=== PATIENT | male | born 1945 | race Caucasian/White ===

== ENCOUNTER 2020-07-10 18:31 | Inpatient (IN) | payer MEDICARE ==
[2020-07-10 19:04] LABS: ABSOLUTE EOSINOPHILS # (AUTO) 0.1 10^3/uL (0.0-0.6); ABSOLUTE LYMPHOCYTES (AUTO) 1.8 10^3/uL (0.5-4.7); ABSOLUTE MONOCYTES (AUTO) 0.7 10^3/uL (0.1-1.4); ABSOLUTE NEUT (AUTO) 4.7 10^3/uL (1.7-8.2); BASOPHILS % (AUTO) 0.3 % (0-2); EOSINOPHILS % (AUTO) 1.6 % (0-6); HEMATOCRIT 40.2 % (37.9-51.0); LYMPHOCYTES % (AUTO) 24.4 % (13-45); MEAN CORPUSCULAR HEMOGLOBIN 31.6 pg (27.0-33.4); MEAN CORPUSCULAR HGB CONC 34.9 g/dL (32.0-36.0); MEAN CORPUSCULAR VOLUME 91 fl (80-97); PLATELET COUNT 174 10^3/uL (150-450); RED BLOOD COUNT 4.44 10^6/uL (4.35-5.55); RED CELL DISTRIBUTION WIDTH 11.7 % (11.5-14.0); SEGMENTED NEUTROPHILS % (AUTO) 64.7 % (42-78); TOTAL CELLS COUNTED % (AUTO) 100 %; WHITE BLOOD COUNT 7.3 10^3/uL (4.0-10.5)
[2020-07-10 19:13] LABS: INTERNATIONAL RATION (INR) 0.94; PROTHROMBIN TIME 12.8 SEC (11.4-15.4)
[2020-07-10 19:18] LABS: ALBUMIN 4.3 g/dL (3.5-5.0); ALKALINE PHOSPHATASE 77 U/L (38-126); ANION GAP 10 (5-19); ASPARTATE AMINO TRANSFERASE 27 U/L (17-59); BILIRUBIN,DIRECT 0.2 mg/dL (0.0-0.4); BILIRUBIN,TOTAL 0.7 mg/dL (0.2-1.3); BLOOD UREA NITROGEN 23 mg/dL (7-20); CALCIUM 9.8 mg/dL (8.4-10.2); CARBON DIOXIDE 25 mmol/L (22-30); CHLORIDE 102 mmol/L (98-107); GLUCOSE 309 mg/dL (75-110); POTASSIUM 4.5 mmol/L (3.6-5.0); TOTAL PROTEIN 7.2 g/dL (6.3-8.2)
--- NOTE | 2020-07-10 19:18 | ER Document Report ---
ED General - General Chief Complaint: Weakness Stated Complaint: WEAKNESS Time Seen by Provider: 07/10/20 18:56 Primary Care Provider: COLLEEN BLACK PA [Primary Care Provider] - Follow up as needed - HPI Notes: Patient is a 75-year-old male with a history of rheumatoid arthritis, gout, diabetes, hypertension, who presents to the emergency department for evaluation of right-sided weakness. He states about 2 weeks ago he went to stand up and he collapsed to the floor. He fell to both of his knees, sustaining abrasions. He had weakness for about a day. He states that starting again on Saturday he noticed right-sided weakness. He really cannot make his right arm do what he wants it to. He denies any associated pain. No difficulty seeing, speaking, swallowing. Moving his left side without difficulty. He denies any recent head injury. He states that his blood sugar is well controlled when he takes his medications as prescribed, but he admits he does not take his medications at times. He cannot give me a clear reason why. - Related Data Allergies/Adverse Reactions: No Known Allergies Allergy (Unverified 07/10/20 19:04) Home Medications: List reviewed at bedside Past Medical History - General Information source: Patient, Relative - Social History Smoking Status: Former Smoker Family History: Reviewed & Not Pertinent Patient has homicidal ideation: No - Past Medical History Cardiac Medical History: Reports: Hx Hypercholesterolemia, Hx Hypertension Endocrine Medical History: Reports: Hx Diabetes Mellitus Type 2 Renal/ Medical History: Reports: Hx Benign Prostatic Hyperplasia Musculoskeletal Medical History: Reports Hx Arthritis - Rheumatoid arthritis, Reports Hx Gout Review of Systems - Review of Systems Constitutional: No symptoms reported EENT: No symptoms reported Cardiovascular: No symptoms reported, See HPI Respiratory: No symptoms reported Gastrointestinal: No symptoms reported Genitourinary: No symptoms reported Musculoskeletal: No symptoms reported Skin: See HPI Neurological/Psychological: See HPI -: Yes All other systems reviewed and negative Physical Exam - Vital signs Vitals: Temp Pulse Resp BP Pulse Ox 98.5 F 88 16 181/87 H 95 07/10/20 18:59 07/10/20 18:59 07/10/20 18:59 07/10/20 18:59 07/10/20 18:59 - Notes Notes: Vital signs reviewed, please refer to chart. Head is normocephalic, atraumatic. Pupils equal round, reactive to light. Neck is supple without meningismus. Heart is regular rate and rhythm. Lungs are clear to auscultation bilaterally. Abdomen is soft, nontender, normoactive bowel sounds throughout. Extremities without cyanosis, clubbing. Posterior calves are nontender. Peripheral pulses are equal. Skin is warm and dry. Well-healing abrasions noted to bilateral knees. Patient is awake, alert, oriented x3. Cranial nerves II - XII are grossly intact without focal neurological deficits. Strength is plus 5 out of 5 left upper and lower extremities. Right upper and lower extremities exhibit 3 out of 5 strength. He does have pronator drift on the right. Sensation is intact. Reflexes diminished bilaterally. Intact vxhfyr-rjwu-leshks, rapid alternating movements, ntsz-ad-gens. Course - Re-evaluation Re-evalutation: 07/10/20 19:17 Patient presents the emergency department for evaluation. He was initially seen, had laboratory investigations ordered. This patient has most definitely suffered a CVA of some sort. His deficits are minimal as of this moment. CT scan, blood work pending at this time. We will continue to monitor. 07/10/20 21:05 Laboratory investigations and imaging are largely unremarkable. No hemorrhage noted on CT scan. Patient is given aspirin, he was able to pass swallow screen. His blood pressure has improved without any sort of intervention, he is currently 146/72. I spoke with Dr. Yancey, he will admit the patient for further care. - Vital Signs Vital signs: Temp Pulse Resp BP Pulse Ox 98.5 F 88 13 181/87 H 97 07/10/20 18:59 07/10/20 19:00 07/10/20 20:25 07/10/20 19:00 07/10/20 20:31 - Laboratory Result Diagrams: 07/10/20 18:46 07/10/20 18:46 Laboratory results interpreted by me: 07/10/20 18:46 BUN 23 H Glucose 309 H - Diagnostic Test Radiology reviewed: Reports reviewed Radiology results interpreted by me: 07/10/20 21:05 Chest X-Ray 07/10/20 19:13 IMPRESSION: Hyperinflated lungs. No acute cardiopulmonary disease. Head CT 07/10/20 19:13 IMPRESSION: 1. Generalized atrophy and chronic small vessel ischemic changes. Follow-up head CT or MRI might be considered to exclude superimposed acute or subacute ischemia. No evidence of acute intracranial hemorrhage or major vascular territorial infarct. 2. Mild paranasal sinus mucosal thickening without air-fluid level. TECHNICAL DOCUMENTATION: Quality ID # 436: Final reports with documentation of one or more dose reduction techniques (e.g., Automated exposure control, adjustment of the mA and/or kV according to patient size, use of iterative reconstruction technique) copyright 2011 [employer]- All Rights Reserved - EKG Interpretation by Me Additional EKG results interpreted by me: 07/10/20 21:05 Sinus mechanism with rate of 85 bpm. Left axis deviation. Right bundle branch block. No old studies available for comparison. Discharge - Discharge Clinical Impression: Acute CVA (cerebrovascular accident) Condition: Stable Disposition: ADMITTED OBSERVATION Admitting Provider: Naye (Hospitalist) Unit Admitted: [facility]U Referrals: COLLEEN BLACK PA [Primary Care Provider] - Follow up as needed
--- NOTE | 2020-07-10 20:01 | RADIOLOGY REPORT (SQ) ---
EXAM DESCRIPTION: CHEST SINGLE VIEW IMAGES COMPLETED DATE/TIME: 07/10/2020 6:46 pm REASON FOR STUDY: right sided weakness COMPARISON: None. EXAM PARAMETERS: NUMBER OF VIEWS: One view. TECHNIQUE: Single frontal radiographic view of the chest acquired. RADIATION DOSE: NA LIMITATIONS: None. FINDINGS: LUNGS AND PLEURA: Lungs are hyperinflated. No opacities, masses or pneumothorax. No pleu ral effusion. MEDIASTINUM AND HILAR STRUCTURES: No masses. Contour normal. HEART AND VASCULAR STRUCTURES: Heart normal in size. Normal vasculature. BONES: No acute findings. HARDWARE: None in the chest. OTHER: No other significant finding. IMPRESSION: Hyperinflated lungs. No acute cardiopulmonary disease. TECHNICAL DOCUMENTATION: JOB ID: [id number] 2010 [employer]- All Rights Reserved Reading location - IP/workstation name: [email or web address]
--- NOTE | 2020-07-10 20:25 | RADIOLOGY REPORT (SQ) ---
EXAM DESCRIPTION: CT HEAD WITHOUT IV CONTRAST COMPLETED DATE/TME: 07/10/2020 19:51 CLINICAL HISTORY: 75 years, Male, right sided weakness COMPARISON: None. TECHNIQUE: Noncontrast imaging of the brain was performed. Images stored on PACS. All CT scanners at this facility use dose modulation, iterative reconstruction, and/or weight based dosing when appropriate to reduce radiation dose to as low as reasonably achievable (ALARA). [facility]: Dose Right [facility]: CareDose [facility]: Dose Right [facility]: Teradose 4D [facility]: [employer] LIMITATIONS: None. FINDINGS: There is age-appropriate atrophy. There is no acute intracranial hemorrhage, abnormal mass effect, or major vascular territorial infarction. There is a mild low-attenuation within the deep white matter, inclusive of the external and internal capsules, likely sequelae of chronic small vessel ischemic disease although short-term follow-up head CT or MRI might be considered to exclude superimposed acute or subacute ischemia. There is no hydrocephalus. The calvarium is intact. There is mild mucosal thickening within the left frontal, left ethmoid, and bilateral maxillary sinuses measuring up to 3 mm, without air-fluid level. IMPRESSION: 1. Generalized atrophy and chronic small vessel ischemic changes. Follow-up head CT or MRI might be considered to exclude superimposed acute or subacute ischemia. No evidence of acute intracranial hemorrhage or major vascular territorial infarct. 2. Mild paranasal sinus mucosal thickening without air-fluid level. TECHNICAL DOCUMENTATION: Quality ID # 436: Final reports with documentation of one or more dose reduction techniques (e.g., Automated exposure control, adjustment of the mA and/or kV according to patient size, use of iterative reconstruction technique) copyright 2011 [employer]- All Rights Reserved
[2020-07-10] MEDS ORDERED: ASPIRIN 325 MG TABLET PO ONE (20:33)
[2020-07-10] MEDS ORDERED: ACETAMINOPHEN 325 MG TABLET PO PRN (22:06)
[2020-07-10] MEDS ORDERED: MAG HYDROX/AL HYDROX/SIMETH SUSP 30 ML UDCUP PO PRN (22:06)
[2020-07-10] MEDS ORDERED: ONDANSETRON HCL INJ/PF 4 MG/2 ML SDV IV PRN (22:06)
[2020-07-10] MEDS ORDERED: DEXTROSE 40% GEL 15 GM TUBE PO PRN ×2 (22:11)
[2020-07-10] MEDS ORDERED: DEXTROSE 50%-WATER 25 GM/50 ML DISP.SYRIN IV PRN ×2 (22:11)
[2020-07-10] MEDS ORDERED: GLUCAGON,HUMAN RECOMB 1 MG INJ IM PRN (22:11)
[2020-07-10] MEDS ORDERED: NAPROXEN 250 MG TABLET PO PRN (22:13)
[2020-07-10] MEDS ORDERED: ALBUTEROL SULFATE HFA (90 MCG/PUFF) 8 GM MDI IH PRN (22:16)
[2020-07-10] MEDS ORDERED: GUAIFENESIN SYRP 200 MG/10 ML UDC PO PRN (22:22)
[2020-07-10] MEDS ORDERED: BENAZEPRIL HCL 20 MG TABLET PO ONE (22:30)
--- NOTE | 2020-07-10 22:38 | PDOC H&P ---
History of Present Illness Admission Date/PCP: 07/10/20 21:22 MELISSA CIFUENTES Patient complains of: Right-sided weakness History of Present Illness: NORAH CHAPMAN is a 75 year old male with history of Felder's palsy, rheumatoid arthritis, type 2 diabetes mellitus, gout, hypertension, who presents to the hospital for evaluation of weakness. He states that about 2 weeks ago he noticed that when he was walking his leg gave out. States his right leg gave out. However in the past couple of days, he has noted significant weakness of his right leg as well as his right arm. He is not able to give me a particular point where this became obvious. He denies any slurred speech, paresthesias, dizziness, dysphagia. Denies any prior history of stroke. States he was having difficulty ambulating and decided to come get it checked out. ER consult hospitalist service for admission for suspected stroke. Patient also has a chronic dry hacking cough. He denies any worsening of his cough recently. He does admit to some extensive smoking history but has never been diagnosed with COPD. He does not take any inhalers or does not take anything for the cough. He denies fever or chills. States he got tested for COVID-19 2 weeks ago at his PCPs office which was negative. Past Medical History Cardiac Medical History: Reports: Hyperlipidema, Hypertension Endocrine Medical History: Reports: Diabetes Mellitus Type 2 Musculoskeltal Medical History: Reports: Arthritis - Rheumatoid arthritis, Gout Past Surgical History Past Surgical History: Denies: Cardiac Catheterization, Coronary Artery Bypass Graft Social History Smoking Status: Former Smoker Frequency of Alcohol Use: None Hx Recreational Drug Use: No - Advance Directive Resuscitation Status: Do Not Resuscitate - dnr/dni Family History Family History: DM, Hypertension Parental Family History Reviewed: Yes Children Family History Reviewed: NA Sibling(s) Family History Reviewed.: Yes Medication/Allergy Allergies/Adverse Reactions: No Known Allergies Allergy (Unverified 07/10/20 19:04) Review of Systems Constitutional: ABSENT: chills, fatigue, fever(s), night sweats Eyes: ABSENT: visual disturbances Ears: ABSENT: hearing changes Nose, Mouth, and Throat: ABSENT: headache(s) Cardiovascular: ABSENT: chest pain Respiratory: PRESENT: cough. ABSENT: dyspnea Gastrointestinal: ABSENT: abdominal pain, diarrhea, nausea, vomiting Genitourinary: ABSENT: dysuria Musculoskeletal: ABSENT: back pain Integumentary: ABSENT: diaphoresis Neurological: PRESENT: weakness. ABSENT: confusion, dizziness, paresthesias, syncope, tingling Psychiatric: ABSENT: anxiety Endocrine: ABSENT: polyuria Hematologic/Lymphatic: ABSENT: easy bruising Physical Exam Vital Signs: Temp Pulse Resp BP Pulse Ox 98.5 F 88 13 181/87 H 97 07/10/20 18:59 07/10/20 19:00 07/10/20 20:25 07/10/20 19:00 07/10/20 20:31 Intake & Output 07/09/20 07/10/20 07/11/20 06:59 06:59 06:59 Weight 92.9 kg General appearance: PRESENT: no acute distress, cooperative Eye exam: PRESENT: EOMI, PERRLA. ABSENT: nystagmus Neck exam: ABSENT: JVD Respiratory exam: PRESENT: clear to auscultation [place], symmetrical, unlabored. ABSENT: tachypnea, wheezes Cardiovascular exam: PRESENT: RRR, +S1, +S2. ABSENT: tachycardia GI/Abdominal exam: PRESENT: soft. ABSENT: rebound, rigid, tenderness Neurological exam: PRESENT: alert, awake, oriented to person, oriented to place, oriented to time, oriented to situation, CN II-XII grossly intact - except for mild tongue deviation, motor sensory deficit - 4/5 in RUE and RLE extremity. LLE is 4/5 also but stronger than right. LUE is 5/5. ABSENT: ataxia Psychiatric exam: ABSENT: agitated, anxious Focused psych exam: ABSENT: pressured speech Skin exam: ABSENT: jaundice Results Laboratory Results: 07/10/20 18:46 07/10/20 18:46 07/10/20 07/10/20 18:46 18:46 WBC 7.3 RBC 4.44 Hgb 14.0 Hct 40.2 MCV 91 MCH 31.6 MCHC 34.9 RDW 11.7 Plt Count 174 Seg Neutrophils % 64.7 Sodium 137.0 Potassium 4.5 Chloride 102 Carbon Dioxide 25 Anion Gap 10 BUN 23 H Creatinine 0.85 Est GFR ( Amer) > 60 Glucose 309 H Calcium 9.8 Total Bilirubin 0.7 AST 27 Alkaline Phosphatase 77 Total Protein 7.2 Albumin 4.3 07/10/20 18:46 Troponin I < 0.012 Impressions: Chest X-Ray 07/10/20 19:13 IMPRESSION: Hyperinflated lungs. No acute cardiopulmonary disease. Head CT 07/10/20 19:13 IMPRESSION: 1. Generalized atrophy and chronic small vessel ischemic changes. Follow-up head CT or MRI might be considered to exclude superimposed acute or subacute ischemia. No evidence of acute intracranial hemorrhage or major vascular territorial infarct. 2. Mild paranasal sinus mucosal thickening without air-fluid level. TECHNICAL DOCUMENTATION: Quality ID # 436: Final reports with documentation of one or more dose reduction techniques (e.g., Automated exposure control, adjustment of the mA and/or kV according to patient size, use of iterative reconstruction technique) copyright 2011 [employer]- All Rights Reserved Assessment and Plan - Diagnosis (1) Suspected cerebrovascular accident (CVA) Is this a current diagnosis for this admission?: Yes Plan: Right-sided weakness. But also does have left leg weakness. CT head shows chronic vascular disease. We will check an MRI to see if patient truly had a stroke --if positive for stroke, will then proceed with carotid Dopplers and echo Check CK Neuro exams PT/OT Aspirin, Plavix, atorvastatin Telemetry Check hemoglobin A1c, TSH and lipid panel (2) Hyperglycemia due to type 2 diabetes mellitus Qualifiers: Diabetes mellitus long term care social worker insulin use: without mcfp use Qualified Code(s): E11.65 - Type 2 diabetes mellitus with hyperglycemia Is this a current diagnosis for this admission?: Yes Plan: Place on Accu-Cheks and resume glimepiride. Hold Metformin. SSI, diabetic diet. Check A1c in the morning. (3) Uncontrolled hypertension Is this a current diagnosis for this admission?: Yes Plan: BP of 180 systolic. I will give him a dose of his benazepril which he takes at home. I suspect he may need a second agent so consider adding this if his BP remains uncontrolled. (4) Cough Is this a current diagnosis for this admission?: Yes Plan: Suspect this is secondary to smoking and undiagnosed COPD. However given his persistent hacking cough and sinusitis, I will go ahead and test patient for COVID-19 as this could indicate viral bronchitis. Chest x-ray shows no evidence of pneumonia Robitussin as needed Flonase (5) COPD (chronic obstructive pulmonary disease) Qualifiers: COPD type: unspecified COPD Qualified Code(s): J44.9 - Chronic obstructive pulmonary disease, unspecified Is this a current diagnosis for this admission?: Yes Plan: Patient's chest x-ray shows findings compatible with COPD morphology. Also has extensive smoking history. Has never had PFTs to officially diagnose COPD but it is very likely that he does have COPD. Currently no evidence of exacerbation but instituting a controller inhaler after diagnosis of COPD may help with his coughing symptoms. Albuterol as needed. (6) Rheumatoid arthritis Qualifiers: Rheumatoid arthritis location: unspecified site Rheumatoid factor presence: unspecified presence Qualified Code(s): M06.9 - Rheumatoid arthritis, unspecified Is this a current diagnosis for this admission?: Yes Plan: Continue home regimen of naproxen and low-dose prednisone - Time Time Spent with patient: 35 or more minutes Anticipated Discharge Disposition: Home, Self Care Anticipated Discharge Timeframe: within 48 hours
[2020-07-10] MEDS ORDERED: MELATONIN 5 MG TABLET PO ONE (23:59)
--- NOTE | 2020-07-11 00:01 | EKG REPORT ---
SEVERITY:- ABNORMAL ECG - SINUS RHYTHM RIGHT BUNDLE BRANCH BLOCK : Confirmed by: Akbar Ibrahim 10-Jul-2020 23:59:07
[2020-07-11] MEDS ORDERED: FLUTICASONE NASAL SPRAY 50 MCG/SPRY 120 SPRAY/16 GM ONE (00:08)
[2020-07-11] MEDS ORDERED: BENAZEPRIL HCL 20 MG TABLET ONE ×2 (00:08→00:09)
[2020-07-11] MEDS: FAMOTIDINE 20 MG TABLET PO SCH ×4 (00:22→21:30)
[2020-07-11] MEDS: FLUTICASONE NASAL SPRAY 50 MCG/SPRY 120 SPRAY/16 GM NASL SCH ×3 (00:23→22:00)
[2020-07-11 06:22] LABS: CREATINE KINASE 32 U/L (55-170); DIRECT LDL 152 mg/dL (<100); TRIGLYCERIDES 279 mg/dL (<150); VLDL CHOLESTEROL 55.8 mg/dL (10-31)
[2020-07-11] MEDS: INSULIN LISPRO 100 UNIT/ML 3 ML VIAL SUBCUT SCH ×4 (08:13→21:28)
[2020-07-11] MEDS: GLIMEPIRIDE 4 MG TABLET PO SCH (10:49)
[2020-07-11] MEDS: FOLIC ACID 1 MG TABLET PO SCH (10:49)
[2020-07-11] MEDS: CLOPIDOGREL BISULFATE 75 MG TABLET PO SCH (10:49)
[2020-07-11] MEDS: BENAZEPRIL HCL 20 MG TABLET PO SCH (10:49)
[2020-07-11] MEDS: ASPIRIN 81 MG TABLET, ENT COATED PO SCH (10:49)
[2020-07-11] MEDS: ENOXAPARIN SODIUM INJ 40 MG/0.4 ML DISP.SYRIN SUBCUT SCH (10:50)
[2020-07-11] MEDS: PREDNISONE 1 MG TABLET PO SCH (10:50)
[2020-07-11] MEDS: ALLOPURINOL 100 MG TABLET PO SCH (10:50)
--- NOTE | 2020-07-11 13:22 | RADIOLOGY REPORT (SQ) ---
EXAM DESCRIPTION: MRI HEAD WITHOUT IMAGES COMPLETED DATE/TIME: 07/11/2020 12:15 pm REASON FOR STUDY: stroke protocol. RLE and right arm weakness COMPARISON: CT of the head without contrast from 07/10/2020. TECHNIQUE: Multiplanar imaging includes non-contrasted T1, T2, FLAIR, and diffusion with ADC map seq uences. Images stored on PACS. LIMITATIONS: None. FINDINGS: The midline structures, including the sella turcica, corpus callosum and craniocervical ju nction are normal in appearance. There is a focus of restricted diffusion within the posterior limb of the left internal capsule (imag e 15 of series 4) that demonstrates high signal on the FLAIR sequence. The areas of high T2/FLAIR signal throughout the supratentorial periventricular and subcortical white matter likely represent the sequela of chronic microvascular ischemia. The focus of high T2 signal within the white substance of the right cerebellar hemisphere (image 2 of series 5) could represent a chronic lacunar infarct. There is no acute intracranial hemorrhage, extra-axial fluid collection, mass effect or midline shift . The schafer-white matter differentiation is preserved. The caliber of the ventricles is concordant w ith the degree of sulcation. There is no effacement of the basal subarachnoid cisterns. The intracra nial vascular flow voids are preserved. The focus of susceptibility artifact within the periventricu lar white matter of the left frontal lobe (image 16 of series 9) likely represent a focus of hemoside rin deposition. The orbits and globes are intact. The mucosal lining of the maxillary sinuses is mildly thickened ; there is no paranasal sinus air-fluid level. The mastoid air cells are clear. There is no gross abno rmality of the internal auditory canals and cerebellopontine angles. IMPRESSION: ACUTE INFARCT WITHIN THE POSTERIOR LIMB OF THE LEFT INTERNAL CAPSULE. EVIDENCE OF ACUTE STROKE: YES. ANTERIOR CHOROIDAL ARTERY. TECHNICAL DOCUMENTATION: JOB ID: [id number] 2010 [employer]- All Rights Reserved Reading location - IP/workstation name: [email or web address]
--- NOTE | 2020-07-11 13:29 | RADIOLOGY REPORT (SQ) ---
EXAM DESCRIPTION: MRA HEAD WITHOUT IMAGES COMPLETED DATE/TIME: 07/11/2020 12:15 pm REASON FOR STUDY: CVA COMPARISON: None. TECHNIQUE: Axial 3-D [id number] acquisition imaging performed through the brain in the area of t he [place]. Images reformatted using 3-D MIPS. LIMITATIONS: None. FINDINGS: SOURCE IMAGES: No unexpected findings on source images. No large masses. 3-D MIP: There is a focal high-grade stenosis of the sphenoid part of the M1 segment of the left MCA. The arborization pattern in the distribution of the MCAs is symmetric. The anterior communicating artery is patent. There is a focal moderate stenosis of the A2 segment of the right ZHANG (image 115 o f series 7). The basilar artery is patent. There is a variant origin of the left [employer]. The ar borization pattern in the distribution of the central sterile supply technician is symmetric. There is no aneurysm of the intracr anial arterial vasculature. OTHER: No other findings. IMPRESSION: 1. 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 2. Focal stenosis of the A2 segment of the right ZHANG (image 115 of series 7). 3. Variant origin of the left [employer]. TECHNICAL DOCUMENTATION: JOB ID: [id number] 2010 [employer]- All Rights Reserved Reading location - IP/workstation name: [email or web address]
--- NOTE | 2020-07-11 15:27 | ER Document Report ---
Doctor's Note Notes: 07/11/20 15:26 ED provider note today patient is hemodynamically stable. Patient has an apparent CVA with right-sided weakness. Patient is pending admission to a floor bed at this time. Patient had no complaints.
[2020-07-11] MEDS: METOPROLOL SUCCINATE 25 MG TAB.SR.24H PO SCH (17:07)
--- NOTE | 2020-07-11 17:18 | PDOC PROGRESS REPORT ---
Subjective Date:: 07/11/20 Subjective:: As per admitting physician NORAH CHAPMAN is a 75 year old male with history of Felder's palsy, rheumatoid arthritis, type 2 diabetes mellitus, gout, hypertension, who presents to the hospital for evaluation of weakness. He states that about 2 weeks ago he noticed that when he was walking his leg gave out. States his right leg gave out. However in the past couple of days, he has noted significant weakness of his right leg as well as his right arm. He is not able to give me a particular point where this became obvious. He denies any slurred speech, paresthesias, dizziness, dysphagia. Denies any prior history of stroke. States he was having difficulty ambulating and decided to come get it checked out. ER consult hospitalist service for admission for suspected stroke. Patient also has a chronic dry hacking cough. He denies any worsening of his cough recently. He does admit to some extensive smoking history but has never been diagnosed with COPD. He does not take any inhalers or does not take anything for the cough. He denies fever or chills. States he got tested for COVID-19 2 weeks ago at his PCPs office which was negative. 07/11/2020. No acute events overnight. Patient still complaining of right upper lower extremity weakness, denies any numbness tingling, denies any slurred speech or dysphagia, denies any chest pain, fever, chills, nausea, vomiting, diarrhea, constipation or any urinary symptoms. Reason For Visit: POSSIBLE CVA Physical Exam Vital Signs: Temp Pulse Resp BP Pulse Ox 100.1 F 76 20 153/61 H 97 07/11/20 17:00 07/11/20 17:00 07/11/20 17:00 07/11/20 17:00 07/11/20 17:00 Intake & Output 07/10/20 07/11/20 07/12/20 06:59 06:59 06:59 Weight 92.9 kg General appearance: PRESENT: no acute distress, well-developed, well-nourished Head exam: PRESENT: atraumatic, normocephalic Respiratory exam: PRESENT: clear to auscultation kimberly. ABSENT: rales, rhonchi, wheezes Cardiovascular exam: PRESENT: RRR. ABSENT: diastolic murmur, rubs, systolic murmur GI/Abdominal exam: PRESENT: normal bowel sounds, soft. ABSENT: distended, guarding, mass, organolmegaly, rebound, tenderness Extremities exam: PRESENT: full ROM, joint swelling - Right knee swelling and tenderness.. ABSENT: calf tenderness, clubbing, pedal edema Neurological exam: PRESENT: alert, awake, oriented to person, oriented to place, oriented to time, oriented to situation, reflexes normal, CN II-XII grossly intact, motor sensory deficit - Right upper extremity proximal muscle group strength 3/5. Distal muscles strength 5/5. Left lower extremity strength 5/5. Right lower extremity could not be evaluated properly as patient has swollen and tender knee. Right lower extremity distal muscles strength 3/5. Results Laboratory Results: 07/10/20 18:46 07/10/20 18:46 07/10/20 07/10/20 07/11/20 18:46 18:46 04:50 WBC 7.3 RBC 4.44 Hgb 14.0 Hct 40.2 MCV 91 MCH 31.6 MCHC 34.9 RDW 11.7 Plt Count 174 Seg Neutrophils % 64.7 Sodium 137.0 Potassium 4.5 Chloride 102 Carbon Dioxide 25 Anion Gap 10 BUN 23 H Creatinine 0.85 Est GFR ( Amer) > 60 Glucose 309 H Calcium 9.8 Total Bilirubin 0.7 AST 27 Alkaline Phosphatase 77 Total Protein 7.2 Albumin 4.3 Triglycerides 279 H Cholesterol 203.40 H LDL Cholesterol Direct 152 H VLDL Cholesterol 55.8 H HDL Cholesterol 42 TSH 07/11/20 04:50 WBC RBC Hgb Hct MCV MCH MCHC RDW Plt Count Seg Neutrophils % Sodium Potassium Chloride Carbon Dioxide Anion Gap BUN Creatinine Est GFR ( Amer) Glucose Calcium Total Bilirubin AST Alkaline Phosphatase Total Protein Albumin Triglycerides Cholesterol LDL Cholesterol Direct VLDL Cholesterol HDL Cholesterol TSH 1.40 07/10/20 07/11/20 18:46 04:50 Creatine Kinase 32 L Troponin I < 0.012 Impressions: Chest X-Ray 07/10/20 19:13 IMPRESSION: Hyperinflated lungs. No acute cardiopulmonary disease. Head CT 07/10/20 19:13 IMPRESSION: 1. Generalized atrophy and chronic small vessel ischemic changes. Follow-up head CT or MRI might be considered to exclude superimposed acute or subacute ischemia. No evidence of acute intracranial hemorrhage or major vascular territorial infarct. 2. Mild paranasal sinus mucosal thickening without air-fluid level. TECHNICAL DOCUMENTATION: Quality ID # 436: Final reports with documentation of one or more dose reduction techniques (e.g., Automated exposure control, adjustment of the mA and/or kV according to patient size, use of iterative reconstruction technique) copyright 2011 [employer]- All Rights Reserved Brain MRI with MRA 07/11/20 00:00 IMPRESSION: 1. 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 2. Focal stenosis of the A2 segment of the right ZHANG (image 115 of series 7). 3. 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 Head MRI 07/11/20 00:00 IMPRESSION: ACUTE INFARCT WITHIN THE POSTERIOR LIMB OF THE LEFT INTERNAL CAPSULE. EVIDENCE OF ACUTE STROKE: YES. ANTERIOR CHOROIDAL ARTERY. Assessment and Plan - Diagnosis (1) Acute CVA (cerebrovascular accident) Is this a current diagnosis for this admission?: Yes Plan: Acute ischemic stroke. MRI head positive for acute infarct within the posterior limb of the left internal capsule. MRA head positive for focal high grade stenosis of the stenotic part of the M1 segment of left MCA. Focal stenosis of the A2 segment of the right ZHANG. Continue telemetry, PT/OT/ST, antiplatelets, high intensity statins, fall, aspiration and seizure precautions, optimize BP and diabetes control. (2) COPD (chronic obstructive pulmonary disease) Qualifiers: COPD type: unspecified COPD Qualified Code(s): J44.9 - Chronic obstructive pulmonary disease, unspecified Is this a current diagnosis for this admission?: Yes Plan: Patient's chest x-ray shows findings compatible with COPD morphology. Also has extensive smoking history. Has never had PFTs to officially diagnose COPD but it is very likely that he does have COPD. Currently no evidence of exacerbation but instituting a controller inhaler after diagnosis of COPD may help with his coughing symptoms. Albuterol as needed. (3) Hyperglycemia due to type 2 diabetes mellitus Qualifiers: Diabetes mellitus correction insulin use: without terminal block assembler use Qualified Code(s): E11.65 - Type 2 diabetes mellitus with hyperglycemia Is this a current diagnosis for this admission?: Yes Plan: Controlled. Hemoglobin A1c 9.8. Home medications are Metformin and glimepiride. Diabetic diet, sliding scale insulin, basal insulin, premeal insulin. Accu-Chek. Hypoglycemia protocol. Resume home meds upon discharge. (4) Rheumatoid arthritis Qualifiers: Rheumatoid arthritis location: unspecified site Rheumatoid factor presence: unspecified presence Qualified Code(s): M06.9 - Rheumatoid arthritis, unspecified Is this a current diagnosis for this admission?: Yes Plan: Continue home regimen of naproxen and low-dose prednisone Patient noted to have right knee swelling and tenderness. Not appear to be infected. We will order knee x-ray. If indicated patient can have right knee arthrocent esis. Consult orthopedic surgery if appropriate. (5) Uncontrolled hypertension Is this a current diagnosis for this admission?: Yes Plan: Improving. Euvolemic. Continue benazepril. Continue beta-blockers. Monitor vitals. Adjust meds as needed. Outpatient PCP follow-up. - Time Time Spent with patient: 35 or more minutes Anticipated Discharge Disposition[facility] Facility Anticipated Discharge Timeframe: within 48 hours
[2020-07-11] MEDS: TAMSULOSIN HCL 0.4 MG CAP.SR.24H PO SCH (17:44)
[2020-07-11] MEDS: ATORVASTATIN CALCIUM 40 MG TABLET PO SCH ×2 (21:29→21:30)
[2020-07-11] MEDS ORDERED: INSULIN GLARGINE,HUM.REC.ANLOG 1,000 UNIT/10 ML VIAL SUBCUT SCH (22:00)
[2020-07-12 05:50] LABS: ABSOLUTE MONOCYTES (AUTO) 1.1 10^3/uL (0.1-1.4); ABSOLUTE NEUT (AUTO) 7.1 10^3/uL (1.7-8.2); BASOPHILS % (AUTO) 0.2 % (0-2); HEMATOCRIT 39.5 % (37.9-51.0); HEMOGLOBIN 13.9 g/dL (13.5-17.0); MEAN CORPUSCULAR HEMOGLOBIN 31.5 pg (27.0-33.4); MEAN CORPUSCULAR HGB CONC 35.1 g/dL (32.0-36.0); MEAN CORPUSCULAR VOLUME 90 fl (80-97); MONOCYTES % (AUTO) 11.9 % (3-13); PLATELET COUNT 145 10^3/uL (150-450); RED CELL DISTRIBUTION WIDTH 11.9 % (11.5-14.0); SEGMENTED NEUTROPHILS % (AUTO) 76.9 % (42-78); TOTAL CELLS COUNTED % (AUTO) 100 %; WHITE BLOOD COUNT 9.2 10^3/uL (4.0-10.5)
[2020-07-12 06:05] LABS: ALBUMIN 3.7 g/dL (3.5-5.0); ALKALINE PHOSPHATASE 64 U/L (38-126); ANION GAP 11 (5-19); ASPARTATE AMINO TRANSFERASE 54 U/L (17-59); BILIRUBIN,DIRECT 0.2 mg/dL (0.0-0.4); BILIRUBIN,TOTAL 1.8 mg/dL (0.2-1.3); BLOOD UREA NITROGEN 16 mg/dL (7-20); CALCIUM 10.1 mg/dL (8.4-10.2); CARBON DIOXIDE 24 mmol/L (22-30); CHLORIDE 101 mmol/L (98-107); GLUCOSE 200 mg/dL (75-110); TOTAL PROTEIN 6.5 g/dL (6.3-8.2)
[2020-07-12] MEDS: INSULIN LISPRO 100 UNIT/ML 3 ML VIAL SUBCUT SCH ×4 (08:21→21:59)
--- NOTE | 2020-07-12 08:48 | RADIOLOGY REPORT (SQ) ---
EXAM DESCRIPTION: KNEE RIGHT 2 VIEWS IMAGES COMPLETED DATE/TIME: 07/11/2020 8:36 pm REASON FOR STUDY: right knee swelling and tenderness. COMPARISON: None. NUMBER OF VIEWS: Two views. TECHNIQUE: AP and lateral radiographic images acquired of the right knee. LIMITATIONS: None. FINDINGS: MINERALIZATION: Normal. BONES: No acute fracture or dislocation. No worrisome bone lesions. Joint space narrowing with osteop hytes in the medial compartment and patellofemoral compartment. JOINT: Suprapatellar joint effusion. No chondrocalcinosis. OTHER: No other significant finding. IMPRESSION: CHRONIC DEGENERATIVE CHANGES. JOINT EFFUSION. NO APPARENT ACUTE FINDINGS. TECHNICAL DOCUMENTATION: JOB ID: [id number] 2010 [employer]- All Rights Reserved Reading location - IP/workstation name: AD
[2020-07-12] MEDS ORDERED: HYDROCHLOROTHIAZIDE 12.5 MG TABLET PO SCH (09:30)
[2020-07-12] MEDS: BENAZEPRIL HCL 20 MG TABLET PO SCH (11:02)
[2020-07-12] MEDS: CLOPIDOGREL BISULFATE 75 MG TABLET PO SCH (11:02)
[2020-07-12] MEDS: GLIMEPIRIDE 4 MG TABLET PO SCH (11:02)
[2020-07-12] MEDS: ALLOPURINOL 100 MG TABLET PO SCH (11:03)
[2020-07-12] MEDS: ASPIRIN 81 MG TABLET, ENT COATED PO SCH (11:03)
[2020-07-12] MEDS: FOLIC ACID 1 MG TABLET PO SCH (11:03)
[2020-07-12] MEDS: METOPROLOL SUCCINATE 25 MG TAB.SR.24H PO SCH (11:03)
[2020-07-12] MEDS: FAMOTIDINE 20 MG TABLET PO SCH ×2 (11:04→21:58)
[2020-07-12] MEDS: ENOXAPARIN SODIUM INJ 40 MG/0.4 ML DISP.SYRIN SUBCUT SCH (11:04)
[2020-07-12] MEDS: INSULIN GLARGINE,HUM.REC.ANLOG 1,000 UNIT/10 ML VIAL SUBCUT SCH ×2 (11:04→18:01)
[2020-07-12] MEDS: PREDNISONE 1 MG TABLET PO SCH (11:09)
[2020-07-12] MEDS: FLUTICASONE NASAL SPRAY 50 MCG/SPRY 120 SPRAY/16 GM NASL SCH ×2 (11:23→22:00)
[2020-07-12] MEDS: TAMSULOSIN HCL 0.4 MG CAP.SR.24H PO SCH (17:50)
[2020-07-12] MEDS: METFORMIN HCL 500 MG TABLET PO SCH (17:52)
[2020-07-12] MEDS ORDERED: (PENDING PHARMACY ID) (Metformin Hcl [Metformin Hcl Er] 500 MG Tab.Er.24h) PO SCH (18:00)
[2020-07-12] MEDS ORDERED: COLCHICINE 0.6 MG TABLET PO ONE (18:00)
--- NOTE | 2020-07-12 20:59 | PDOC PROGRESS REPORT ---
Subjective Date:: 07/12/20 Subjective:: Patient is resting in bed comfortably. He notes continued weakness right side of the body of the body. Patient tells me that prior to the stroke he was rather independent enjoyed frequent gardening and was a salesforce business analyst. Tells me that he is interested in pursuing rehabilitation on discharge from the hospital. Again notes pain in the right knee. Reports history of gout states that pain is relatively consistent with previous gout attacks. He is on allopurinol daily but reports noncompliance with his medication. No further complaints or concerns at this time. Reason For Visit: POSSIBLE CVA Physical Exam Vital Signs: Temp Pulse Resp BP Pulse Ox 97.4 F 74 20 160/60 H 99 07/12/20 16:24 07/12/20 20:00 07/12/20 20:00 07/12/20 20:00 07/12/20 20:00 Intake & Output 07/11/20 07/12/20 07/13/20 06:59 06:59 06:59 Intake Total 260 Output Total 500 100 Balance -500 160 Weight 92.9 kg 92.9 kg 92.9 kg General appearance: PRESENT: no acute distress, cooperative, well-developed, well-nourished Head exam: PRESENT: atraumatic, normocephalic Eye exam: PRESENT: EOMI. ABSENT: scleral icterus Mouth exam: PRESENT: moist, tongue midline Neck exam: PRESENT: full ROM. ABSENT: carotid bruit, tenderness Respiratory exam: PRESENT: clear to auscultation kimberly, symmetrical Cardiovascular exam: PRESENT: RRR. ABSENT: diastolic murmur, systolic murmur Pulses: PRESENT: normal radial pulses GI/Abdominal exam: PRESENT: normal bowel sounds, soft. ABSENT: tenderness Extremities exam: PRESENT: joint swelling - Blossom with swelling and tenderness to deep palpation. Without erythema or warmth. Musculoskeletal exam: PRESENT: tenderness - Right knee Neurological exam: PRESENT: alert, awake, oriented to person, oriented to place, oriented to time, oriented to situation, other - 8 upper extremity proximal muscle group with strength Decreased muscle strength. Right lower extremity with decreased muscle strength. Consistent with previous stroke. Psychiatric exam: PRESENT: appropriate affect, normal mood Skin exam: PRESENT: dry, intact, warm Results Laboratory Results: 07/12/20 04:52 07/12/20 04:52 07/12/20 07/12/20 04:52 04:52 WBC 9.2 RBC 4.40 Hgb 13.9 Hct 39.5 MCV 90 MCH 31.5 MCHC 35.1 RDW 11.9 Plt Count 145 L Seg Neutrophils % 76.9 Sodium 136.1 L Potassium 4.0 Chloride 101 Carbon Dioxide 24 Anion Gap 11 BUN 16 Creatinine 0.82 Est GFR ( Amer) > 60 Glucose 200 H Calcium 10.1 Total Bilirubin 1.8 H AST 54 Alkaline Phosphatase 64 Total Protein 6.5 Albumin 3.7 07/10/20 07/11/20 18:46 04:50 Creatine Kinase 32 L Troponin I < 0.012 Impressions: Chest X-Ray 07/10/20 19:13 IMPRESSION: Hyperinflated lungs. No acute cardiopulmonary disease. Head CT 07/10/20 19:13 IMPRESSION: 1. Generalized atrophy and chronic small vessel ischemic changes. Follow-up head CT or MRI might be considered to exclude superimposed acute or subacute ischemia. No evidence of acute intracranial hemorrhage or major vascular territorial infarct. 2. Mild paranasal sinus mucosal thickening without air-fluid level. TECHNICAL DOCUMENTATION: Quality ID # 436: Final reports with documentation of one or more dose reduction techniques (e.g., Automated exposure control, adjustment of the mA and/or kV according to patient size, use of iterative reconstruction technique) copyright 2011 [employer]- All Rights Reserved Brain MRI with MRA 07/11/20 00:00 IMPRESSION: 1. 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 2. Focal stenosis of the A2 segment of the right ZHANG (image 115 of series 7). 3. 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 Head MRI 07/11/20 00:00 IMPRESSION: ACUTE INFARCT WITHIN THE POSTERIOR LIMB OF THE LEFT INTERNAL CAPSULE. EVIDENCE OF ACUTE STROKE: YES. ANTERIOR CHOROIDAL ARTERY. Knee X-Ray 07/11/20 00:00 IMPRESSION: CHRONIC DEGENERATIVE CHANGES. JOINT EFFUSION. NO APPARENT ACUTE FINDINGS. Assessment and Plan - Diagnosis (1) Gout of right knee Qualifiers: Gout etiology: idiopathic Chronicity: acute Qualified Code(s): M10.061 - Idiopathic gout, right knee Is this a current diagnosis for this admission?: Yes Plan: Hx gout. Tx'd with allopurinol. Reports noncompliance with medication. Initiate colchicine treatment for acute flareup. (2) Acute CVA (cerebrovascular accident) Is this a current diagnosis for this admission?: Yes Plan: Acute ischemic stroke. MRI head positive for acute infarct within the posterior limb of the left internal capsule. MRA head positive for focal high grade stenosis of the stenotic part of the M1 segment of left MCA. Focal stenosis of the A2 segment of the right ZHANG. Continue PT/OT; believe will benefit from rehabilitation facility following dc. Dietary recommendations as per Speech evaluation. Optimize BP and DM medications. (3) COPD (chronic obstructive pulmonary disease) Qualifiers: COPD type: unspecified COPD Qualified Code(s): J44.9 - Chronic obstructive pulmonary disease, unspecified Is this a current diagnosis for this admission?: Yes Plan: No current signs exacerbation. Albuterol as needed. (4) Hyperglycemia due to type 2 diabetes mellitus Qualifiers: Diabetes mellitus retirement insulin use: without retirement use Qualified Code(s): E11.65 - Type 2 diabetes mellitus with hyperglycemia Is this a current diagnosis for this admission?: Yes Plan: Controlled. Hemoglobin A1c 9.8. Home medications are Metformin and glimepiride; resume these today for tighter glycemic control. Continue with diabetic diet, sliding scale insulin, basal insulin, premeal insulin. Accu-Chek. Hypoglycemia protocol. (5) Rheumatoid arthritis Qualifiers: Rheumatoid arthritis location: unspecified site Rheumatoid factor presence: unspecified presence Qualified Code(s): M06.9 - Rheumatoid arthritis, unspecified Is this a current diagnosis for this admission?: Yes Plan: Continue home regimen of naproxen and low-dose prednisone (6) Uncontrolled hypertension Is this a current diagnosis for this admission?: Yes Plan: Consistently elevated at 160/60. Continue benazepril. Continue beta-blockers. Initiate Amlodipine 5mg qhs for tighter BP control. - Plan Summary Summary: Plan to discharge to short term rehab facility, believe will greatly benefit. COVID negative. - Time Time Spent with patient: 25-34 minutes Smoking Cessation Education: 3 to 10 minutes Medications reviewed and adjusted accordingly: Yes Anticipated Discharge Disposition: Shelter Facility Anticipated Discharge Timeframe: within 24 hours
[2020-07-12] MEDS: ATORVASTATIN CALCIUM 40 MG TABLET PO SCH (21:58)
[2020-07-12] MEDS: AMLODIPINE BESYLATE 5 MG TABLET PO SCH (21:58)
[2020-07-13 06:39] LABS: HEMATOCRIT 37.6 % (37.9-51.0); HEMOGLOBIN 12.9 g/dL (13.5-17.0); MEAN CORPUSCULAR HEMOGLOBIN 31.2 pg (27.0-33.4); MEAN CORPUSCULAR HGB CONC 34.4 g/dL (32.0-36.0); MEAN CORPUSCULAR VOLUME 91 fl (80-97); PLATELET COUNT 160 10^3/uL (150-450); RED BLOOD COUNT 4.15 10^6/uL (4.35-5.55); WHITE BLOOD COUNT 9.5 10^3/uL (4.0-10.5)
[2020-07-13 06:59] LABS: ANION GAP 14 (5-19); BLOOD UREA NITROGEN 26 mg/dL (7-20); CALCIUM 9.6 mg/dL (8.4-10.2); CARBON DIOXIDE 25 mmol/L (22-30); CHLORIDE 97 mmol/L (98-107); GLUCOSE 190 mg/dL (75-110); POTASSIUM 3.8 mmol/L (3.6-5.0)
[2020-07-13] MEDS ORDERED: NORMAL SALINE 1000 ML 1,000 ML IV PRN (08:32)
[2020-07-13] MEDS ORDERED: INSULIN GLARGINE,HUM.REC.ANLOG 1,000 UNIT/10 ML VIAL (PYX) SUBCUT ONE (09:08)
[2020-07-13] MEDS: ASPIRIN 81 MG TABLET, ENT COATED PO SCH (09:21)
[2020-07-13] MEDS: GLIMEPIRIDE 4 MG TABLET PO SCH (09:21)
[2020-07-13] MEDS: PREDNISONE 1 MG TABLET PO SCH (09:21)
[2020-07-13] MEDS: FAMOTIDINE 20 MG TABLET PO SCH ×2 (09:21→23:13)
[2020-07-13] MEDS: ENOXAPARIN SODIUM INJ 40 MG/0.4 ML DISP.SYRIN SUBCUT SCH (09:21)
[2020-07-13] MEDS: CLOPIDOGREL BISULFATE 75 MG TABLET PO SCH (09:21)
[2020-07-13] MEDS: FOLIC ACID 1 MG TABLET PO SCH (09:21)
[2020-07-13] MEDS: METFORMIN HCL 500 MG TABLET PO SCH ×3 (09:21→17:12)
[2020-07-13] MEDS: METOPROLOL SUCCINATE 25 MG TAB.SR.24H PO SCH (09:21)
[2020-07-13] MEDS: INSULIN LISPRO 100 UNIT/ML 3 ML VIAL SUBCUT SCH ×4 (09:22→23:12)
[2020-07-13] MEDS ORDERED: COLCHICINE 0.6 MG TABLET PO SCH (10:00)
[2020-07-13] MEDS ORDERED: INSULIN GLARGINE,HUM.REC.ANLOG 1,000 UNIT/10 ML VIAL SUBCUT SCH (10:00)
[2020-07-13] MEDS: FLUTICASONE NASAL SPRAY 50 MCG/SPRY 120 SPRAY/16 GM NASL SCH ×2 (10:44→23:35)
[2020-07-13] MEDS: COLCHICINE 0.6 MG TABLET PO SCH ×2 (10:44→23:35)
[2020-07-13] MEDS: INSULIN GLARGINE,HUM.REC.ANLOG 1,000 UNIT/10 ML VIAL SUBCUT SCH ×2 (10:47→23:10)
[2020-07-13] MEDS: BENAZEPRIL HCL 20 MG TABLET PO SCH (10:48)
[2020-07-13] MEDS: PAROXETINE HCL 20 MG TABLET PO SCH (10:49)
--- NOTE | 2020-07-13 16:25 | PDOC PROGRESS REPORT ---
Subjective Date:: 07/13/20 Subjective:: Patient sitting upright in bed eating his lunch. Tells me that he has already worked with PT and believed it went well. His right knee pain has improved from yesterday. Pt's is at his bed side, she inquires about [facility] SN[facility], I informed discharge planning of this. Patient provides me with no concerns or complaints today. No concerns or complaints per nursing. Reason For Visit: POSSIBLE CVA Physical Exam Vital Signs: Temp Pulse Resp BP Pulse Ox 98.0 F 95 19 127/55 H 94 07/13/20 11:21 07/13/20 14:00 07/13/20 12:00 07/13/20 12:00 07/13/20 12:00 Intake & Output 07/12/20 07/13/20 07/14/20 06:59 06:59 06:59 Intake Total 260 360 Output Total 500 150 Balance -500 110 360 Weight 92.9 kg 92.8 kg Additional comments: General appearance: PRESENT: no acute distress, cooperative, well-developed, w ell-nourished Head exam: PRESENT: atraumatic, normocephalic Eye exam: PRESENT: EOMI. ABSENT: scleral icterus Mouth exam: PRESENT: moist, tongue midline Neck exam: PRESENT: full ROM. ABSENT: carotid bruit, tenderness Respiratory exam: PRESENT: clear to auscultation kimberly, symmetrical Cardiovascular exam: PRESENT: RRR. ABSENT: diastolic murmur, systolic murmur Pulses: PRESENT: normal radial pulses GI/Abdominal exam: PRESENT: normal bowel sounds, soft. ABSENT: tenderness Extremities exam: PRESENT: joint swelling - right knee joint swelling and tenderness to deep palpation. Without erythema or warmth. Musculoskeletal exam: PRESENT: tenderness - with deep palpation of right knee Neurological exam: PRESENT: alert, awake, oriented to person, oriented to place, oriented to time, oriented to situation, other - right upper extremity proximal muscle group with Decreased muscle strength. Right lower extremity with decre ased muscle strength. Consistent with stroke. Psychiatric exam: PRESENT: appropriate affect, normal mood Skin exam: PRESENT: dry, intact, warm Results Laboratory Results: 07/13/20 05:50 07/13/20 05:50 07/13/20 07/13/20 05:50 05:50 WBC 9.5 RBC 4.15 L Hgb 12.9 L Hct 37.6 L MCV 91 MCH 31.2 MCHC 34.4 RDW 12.0 Plt Count 160 Sodium 135.6 L Potassium 3.8 Chloride 97 L Carbon Dioxide 25 Anion Gap 14 BUN 26 H Creatinine 1.20 Est GFR ( Amer) > 60 Glucose 190 H Calcium 9.6 07/10/20 07/11/20 18:46 04:50 Creatine Kinase 32 L Troponin I < 0.012 Impressions: Chest X-Ray 07/10/20 19:13 IMPRESSION: Hyperinflated lungs. No acute cardiopulmonary disease. Head CT 07/10/20 19:13 IMPRESSION: 1. Generalized atrophy and chronic small vessel ischemic changes. Follow-up head CT or MRI might be considered to exclude superimposed acute or subacute ischemia. No evidence of acute intracranial hemorrhage or major vascular territorial infarct. 2. Mild paranasal sinus mucosal thickening without air-fluid level. TECHNICAL DOCUMENTATION: Quality ID # 436: Final reports with documentation of one or more dose reduction techniques (e.g., Automated exposure control, adjustment of the mA and/or kV according to patient size, use of iterative reconstruction technique) copyright 2011 [employer]- All Rights Reserved Brain MRI with MRA 07/11/20 00:00 IMPRESSION: 1. 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 2. Focal stenosis of the A2 segment of the right ZHANG (image 115 of series 7). 3. 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 Head MRI 07/11/20 00:00 IMPRESSION: ACUTE INFARCT WITHIN THE POSTERIOR LIMB OF THE LEFT INTERNAL CAPSULE. EVIDENCE OF ACUTE STROKE: YES. ANTERIOR CHOROIDAL ARTERY. Knee X-Ray 07/11/20 00:00 IMPRESSION: CHRONIC DEGENERATIVE CHANGES. JOINT EFFUSION. NO APPARENT ACUTE FINDINGS. Assessment and Plan - Diagnosis (1) Gout of right knee Qualifiers: Gout etiology: idiopathic Chronicity: acute Qualified Code(s): M10.061 - Idiopathic gout, right knee Is this a current diagnosis for this admission?: Yes Plan: Hx gout. Tx'd with allopurinol. Reports noncompliance with medication. Day 2 Colchicine tx with last day tx tomorrow. Plan to re-initiate allopurinol for preventative tx once acute flare resolves. (2) Acute CVA (cerebrovascular accident) Is this a current diagnosis for this admission?: Yes Plan: Acute ischemic stroke. MRI head positive for acute infarct within the posterior limb of the left internal capsule. MRA head positive for focal high grade stenosis of the stenotic part of the M1 segment of left MCA. Focal stenosis of the A2 segment of the right ZHANG. Continue PT/OT; believe will benefit from rehabilitation facility following dc. Dietary recommendations as per Speech evaluation. Optimize BP and DM medications. Continue Plavix 75mg daily x90 days. Continue ASA 81mg daily indefinably. Continue Atorvastatin 40mg daily. Initiate Paroxetine 10mg daily as shown to improve s/p CVA depression and rehabilitation. (3) Uncontrolled hypertension Is this a current diagnosis for this admission?: Yes Plan: BP from 160/90s to 120/50s. Continue Benazapril 40mg daily. (Bump in Cr on morning labs likely secondary to initiation of ACEI therapy, not ASHLEY or ATN.) Continue Amlodipine 5mg daily. (4) Hyperglycemia due to type 2 diabetes mellitus Qualifiers: Diabetes mellitus intermediate school teacher insulin use: without intermediate school teacher use Qualified Code(s): E11.65 - Type 2 diabetes mellitus with hyperglycemia Is this a current diagnosis for this admission?: Yes Plan: Hemoglobin A1c 9.8. Glucose consistently elevated 200s. Increase metformin to 1000mg BID. Continue Glimepiride 4mg daily. Continue 15U Lantus BID (Plan to initiate as outpatient tx as well) rn diabetes educator requested. Goal is to gain tighter glycemic control to decrease risk of recurrent stroke. (5) Rheumatoid arthritis Qualifiers: Rheumatoid arthritis location: unspecified site Rheumatoid factor presence: unspecified presence Qualified Code(s): M06.9 - Rheumatoid arthritis, unspecified Is this a current diagnosis for this admission?: Yes Plan: Continue home regimen of naproxen and low-dose prednisone (6) COPD (chronic obstructive pulmonary disease) Qualifiers: COPD type: unspecified COPD Qualified Code(s): J44.9 - Chronic obstructive pulmonary disease, unspecified Is this a current diagnosis for this admission?: Yes Plan: No current signs exacerbation. Albuterol as needed. - Plan Summary Summary: Discharge to SNF for short term rehabilitation, expect would benefit greatly. COVID negative. Placement pending. - Time Time Spent with patient: 25-34 minutes Medications reviewed and adjusted accordingly: Yes Anticipated Discharge Disposition: [facility] Facility Anticipated Discharge Timeframe: within 24 hours
[2020-07-13] MEDS: TAMSULOSIN HCL 0.4 MG CAP.SR.24H PO SCH (17:12)
[2020-07-13] MEDS: AMLODIPINE BESYLATE 5 MG TABLET PO SCH (23:12)
[2020-07-13] MEDS: ATORVASTATIN CALCIUM 40 MG TABLET PO SCH (23:13)
[2020-07-14 08:27] LABS: ANION GAP 11 (5-19); BLOOD UREA NITROGEN 33 mg/dL (7-20); CALCIUM 9.4 mg/dL (8.4-10.2); CARBON DIOXIDE 26 mmol/L (22-30); CHLORIDE 98 mmol/L (98-107); GLUCOSE 167 mg/dL (75-110); POTASSIUM 3.7 mmol/L (3.6-5.0)
[2020-07-14] MEDS: INSULIN LISPRO 100 UNIT/ML 3 ML VIAL SUBCUT SCH ×2 (08:28→12:15)
[2020-07-14] MEDS: CLOPIDOGREL BISULFATE 75 MG TABLET PO SCH (09:27)
[2020-07-14] MEDS: FAMOTIDINE 20 MG TABLET PO SCH (09:27)
[2020-07-14] MEDS: PAROXETINE HCL 20 MG TABLET PO SCH (09:28)
--- NOTE | 2020-07-14 09:31 | PDOC TRANSFER SUMMARY ---
Impression - Admit/DC Date/PCP Admission Date/Primary Care Provider: 07/10/20 21:22 MELISSA CIFUENTES Discharge Date: 07/14/20 - Discharge Diagnosis (1) Gout of right knee Is this a current diagnosis for this admission?: Yes (2) Acute CVA (cerebrovascular accident) Is this a current diagnosis for this admission?: Yes (3) Uncontrolled hypertension Is this a current diagnosis for this admission?: Yes (4) Hyperglycemia due to type 2 diabetes mellitus Is this a current diagnosis for this admission?: Yes (5) Rheumatoid arthritis Is this a current diagnosis for this admission?: Yes (6) COPD (chronic obstructive pulmonary disease) Is this a current diagnosis for this admission?: Yes - Assessment Summary: Discharge to SNF for short term rehabilitation, expect would benefit greatly. COVID negative. Placement pending. - Additional Information Resuscitation Status: Do Not Resuscitate - dnr/dni Referrals: COLLEEN BLACK PA [Primary Care Provider] - Follow up as needed Home Medications: Aspirin [Ecotrin 81 mg EC Tablet] 81 mg PO DAILY 07/11/20 Folic Acid [Folvite 1 mg Tablet] 1 mg PO DAILY 07/11/20 Glimepiride [Amaryl 4 mg Tablet] 4 mg PO DAILY 07/11/20 Metformin HCl [Metformin HCl ER] 1,000 mg PO QPM 07/11/20 Multivitamin [Tab-A-[place] (Multiple Vitamin) Tablet] 1 tab PO DAILY 07/11/20 Tamsulosin HCl [Flomax 0.4 mg Cap.sr] 0.4 mg PO DAILY 07/11/20 History of Present Illiness History of Present Illness: As per admitting HPI on 07/10/[address] Yancey "NORAH CHAPMAN is a 75 year old male with history of Felder's palsy, rheumatoid arthritis, type 2 diabetes mellitus, gout, hypertension, who presents to the hospital for evaluation of weakness. He states that about 2 weeks ago he noticed that when he was walking his leg gave out. States his right leg gave out. However in the past couple of days, he has noted significant weakness of his right leg as well as his right arm. He is not able to give me a particular point where this became obvious. He denies any slurred speech, paresthesias, dizziness, dysphagia. Denies any prior history of stroke. States he was having difficulty ambulating and decided to come get it checked out. ER consult hospitalist service for admission for suspected stroke. Patient also has a chronic dry hacking cough. He denies any worsening of his cough recently. He does admit to some extensive smoking history but has never been diagnosed with COPD. He does not take any inhalers or does not take anything for the cough. He denies fever or chills. States he got tested for COVID-19 2 weeks ago at his PCPs office which was negative." Hospital Course Hospital Course: Gout of right knee Hx gout. Tx'd with allopurinol for preventative purposes, admittidly non- compliant with medications. Acute flare treated with Colchicine, on day three of therapy (07/14/2020). No further tx following. Plan to re-initiate allopurinol for preventative tx once acute flare resolves. Acute CVA (cerebrovascular accident) Acute ischemic stroke as per MRI head, within the posterior limb of the left internal capsule. MRA head positive for focal high grade stenosis of the stenotic part of the M1 segment of left MCA. Focal stenosis of the A2 segment of the right ZHANG. Transition treatment to residential facility for continued PT/OT therapy. Tight blood pressure and glucose control is important moving forward. Continue Plavix 75mg daily x90 days total (Therapy started 07/10/2020) Continue ASA 81mg daily indefinably. Continue Atorvastatin 40mg daily. Initiate Paroxetine 10mg daily as shown to improve s/p CVA depression and rehabilitation. Uncontrolled hypertension Currently in the 120/50s since adding ACEI therapy. Continue Benazapril 40mg daily. (Bump in Cr on morning labs likely secondary to initiation of ACEI therapy, not ASHLEY or ATN.) Continue Amlodipine 5mg daily. Hyperglycemia due to type 2 diabetes mellitus Hemoglobin A1c 9.8 with a glucose consistently elevated 200s. Treat with metformin to 1000mg BID. Continue Glimepiride 4mg daily. Continue 15U Lantus BID. Goal is to gain tighter glycemic control to decrease risk of recurrent stroke. Rheumatoid arthritis Continue home regimen of naproxen and low-dose prednisone COPD (chronic obstructive pulmonary disease) No current signs exacerbation. Albuterol as needed. Physical Exam Vital Signs: Temp Pulse Resp BP Pulse Ox 99.0 F 75 20 121/52 L 92 07/14/20 09:18 07/14/20 08:00 07/14/20 08:00 07/14/20 08:00 07/14/20 08:00 Intake & Output 07/13/20 07/14/20 07/15/20 06:59 06:59 06:59 Intake Total 260 760 Output Total 150 Balance 110 760 Weight 92.8 kg 92.6 kg Additional comments: General appearance: PRESENT: no acute distress, cooperative, well-developed, well-nourished Head exam: PRESENT: atraumatic, normocephalic Eye exam: PRESENT: EOMI. ABSENT: scleral icterus Mouth exam: PRESENT: moist, tongue midline Neck exam: PRESENT: full ROM. ABSENT: carotid bruit, tenderness Respiratory exam: PRESENT: clear to auscultation kimberly, symmetrical Cardiovascular exam: PRESENT: RRR. ABSENT: diastolic murmur, systolic murmur Pulses: PRESENT: normal radial pulses GI/Abdominal exam: PRESENT: normal bowel sounds, soft. ABSENT: tenderness Extremities exam: PRESENT: joint swelling - right knee joint swelling and tenderness to deep palpation. Without erythema or warmth. Musculoskeletal exam: PRESENT: tenderness - with deep palpation of right knee Neurological exam: PRESENT: alert, awake, oriented to person, oriented to place, oriented to time, oriented to situation, other - right upper extremity proximal muscle group with Decreased muscle strength. Right lower extremity with decreased muscle strength. Consistent with stroke. Psychiatric exam: PRESENT: appropriate affect, normal mood Skin exam: PRESENT: dry, intact, warm Results Laboratory Results: WBC 9.5 10^3/uL (4.0-10.5) 07/13/20 05:50 RBC 4.15 10^6/uL (4.35-5.55) L 07/13/20 05:50 Hgb 12.9 g/dL (13.5-17.0) L 07/13/20 05:50 Hct 37.6 % (37.9-51.0) L 07/13/20 05:50 MCV 91 fl (80-97) 07/13/20 05:50 MCH 31.2 pg (27.0-33.4) 07/13/20 05:50 MCHC 34.4 g/dL (32.0-36.0) 07/13/20 05:50 RDW 12.0 % (11.5-14.0) 07/13/20 05:50 Plt Count 160 10^3/uL (150-450) 07/13/20 05:50 Lymph % (Auto) 11.0 % (13-45) L 07/12/20 04:52 [place] % (Auto) 11.9 % (3-13) 07/12/20 04:52 Eos % (Auto) 0.0 % (0-6) 07/12/20 04:52 Baso % (Auto) 0.2 % (0-2) 07/12/20 04:52 Absolute Neuts (auto) 7.1 10^3/uL (1.7-8.2) 07/12/20 04:52 Absolute Lymphs (auto) 1.0 10^3/uL (0.5-4.7) 07/12/20 04:52 Absolute Monos (auto) 1.1 10^3/uL (0.1-1.4) 07/12/20 04:52 Absolute Eos (auto) 0.0 10^3/uL (0.0-0.6) 07/12/20 04:52 Absolute Basos (auto) 0.0 10^3/uL (0.0-0.2) 07/12/20 04:52 Seg Neutrophils % 76.9 % (42-78) 07/12/20 04:52 PT 12.8 SEC (11.4-15.4) 07/10/20 18:46 INR 0.94 07/10/20 18:46 Sodium 134.7 mmol/L (137-145) L 07/14/20 06:44 Potassium 3.7 mmol/L (3.6-5.0) 07/14/20 06:44 Chloride 98 mmol/L (98-107) 07/14/20 06:44 Carbon Dioxide 26 mmol/L (22-30) 07/14/20 06:44 Anion Gap 11 (5-19) 07/14/20 06:44 BUN 33 mg/dL (7-20) H 07/14/20 06:44 Creatinine 1.02 mg/dL (0.52-1.25) 07/14/20 06:44 Est GFR ( Amer) > 60 (>60) 07/14/20 06:44 Est GFR (MDRD) Non-Af > 60 (>60) 07/14/20 06:44 Glucose 167 mg/dL (75-110) H 07/14/20 06:44 POC Glucose 170 mg/dL (70-110) H 07/14/20 07:54 Hemoglobin A1c % 9.8 % (4.7-6.0) H 07/11/20 04:50 Calcium 9.4 mg/dL (8.4-10.2) 07/14/20 06:44 Total Bilirubin 1.8 mg/dL (0.2-1.3) H 07/12/20 04:52 Direct Bilirubin 0.2 mg/dL (0.0-0.4) 07/12/20 04:52 Neonat Total Bilirubin Not Reportable 07/12/20 04:52 Neonat Direct Bilirubin Not Reportable 07/12/20 04:52 Neonat Indirect Bili Not Reportable 07/12/20 04:52 AST 54 U/L (17-59) 07/12/20 04:52 ALT 25 U/L (<50) 07/12/20 04:52 Alkaline Phosphatase 64 U/L (38-126) 07/12/20 04:52 Creatine Kinase 32 U/L (55-170) L 07/11/20 04:50 Troponin I < 0.012 ng/mL 07/10/20 18:46 Total Protein 6.5 g/dL (6.3-8.2) 07/12/20 04:52 Albumin 3.7 g/dL (3.5-5.0) 07/12/20 04:52 Triglycerides 279 mg/dL (<150) H 07/11/20 04:50 Cholesterol 203.40 mg/dL (0-200) H 07/11/20 04:50 LDL Cholesterol Direct 152 mg/dL (<100) H 07/11/20 04:50 VLDL Cholesterol 55.8 mg/dL (10-31) H 07/11/20 04:50 HDL Cholesterol 42 mg/dL (>40) 07/11/20 04:50 TSH 1.40 uIU/mL (0.47-4.68) 07/11/20 04:50 COVID-19 Source See comment 07/11/20 00:32 COVID-19 (BRANDY) Not Detected (Not Detect) 07/11/20 00:32 07/10/20 18:46 Troponin I < 0.012 Impressions: Chest X-Ray 07/10/20 19:13 IMPRESSION: Hyperinflated lungs. No acute cardiopulmonary disease. Head CT 07/10/20 19:13 IMPRESSION: 1. Generalized atrophy and chronic small vessel ischemic changes. Follow-up head CT or MRI might be considered to exclude superimposed acute or subacute ischemia. No evidence of acute intracranial hemorrhage or major vascular territorial infarct. 2. Mild paranasal sinus mucosal thickening without air-fluid level. TECHNICAL DOCUMENTATION: Quality ID # [id number]: Final reports with documentation of one or more dose reduction techniques (e.g., Automated exposure control, adjustment of the mA and/or kV according to patient size, use of iterative reconstruction technique) copyright 2011 [employer]- All Rights Reserved Brain MRI with MRA 07/11/20 00:00 IMPRESSION: 1. 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 2. Focal stenosis of the A2 segment of the right ZHANG (image 115 of series 7). 3. Variant origin of the left TELEHEALTH COORDINATOR. Head MRI 07/11/20 00:00 IMPRESSION: ACUTE INFARCT WITHIN THE POSTERIOR LIMB OF THE LEFT INTERNAL CAPSULE. EVIDENCE OF ACUTE STROKE: YES. ANTERIOR CHOROIDAL ARTERY. Knee X-Ray 07/11/20 00:00 IMPRESSION: CHRONIC DEGENERATIVE CHANGES. JOINT EFFUSION. NO APPARENT ACUTE FINDINGS. Plan Time Spent: Greater than 30 Minutes Stroke Is this a Stroke Patient?: Yes Stroke Pt being discharged on Anti-thrombolytic therapy?: Yes Stroke Pt being discharged on Anti-coagulation therapy?: No Reason(s) for not prescribing Anti-coagulation therapy:: Not indicated Stroke Pt being discharged on Statins?: Yes Acute Heart Failure Is this a Heart Failure Patient?: No
[2020-07-14] MEDS: METFORMIN HCL 500 MG TABLET PO SCH (09:33)
[2020-07-14] MEDS: FOLIC ACID 1 MG TABLET PO SCH (09:34)
[2020-07-14] MEDS: COLCHICINE 0.6 MG TABLET PO SCH (09:34)
[2020-07-14] MEDS: PREDNISONE 1 MG TABLET PO SCH (09:34)
[2020-07-14] MEDS: BENAZEPRIL HCL 20 MG TABLET PO SCH (09:35)
[2020-07-14] MEDS: GLIMEPIRIDE 4 MG TABLET PO SCH (09:35)
[2020-07-14] MEDS: ASPIRIN 81 MG TABLET, ENT COATED PO SCH (09:35)
[2020-07-14] MEDS: INSULIN GLARGINE,HUM.REC.ANLOG 1,000 UNIT/10 ML VIAL SUBCUT SCH (09:36)
[2020-07-14] MEDS: ENOXAPARIN SODIUM INJ 40 MG/0.4 ML DISP.SYRIN SUBCUT SCH (09:36)
[2020-07-14] MEDS: FLUTICASONE NASAL SPRAY 50 MCG/SPRY 120 SPRAY/16 GM NASL SCH (09:38)
[2020-07-14 12:56] VITALS: BP 121/52
== END 2020-07-14 14:38 | DRG 65 ==
LOC: ER 18:31 → OBSVTOIN 21:22 → EH 21:22 → 3N 07-11 19:00 → 5 07-12 18:52
PROVIDERS: ADMIT Internal Medicine; ATTEND Physician Assistant
DX: I63.512 Cerebral infarction due to unspecified occlusion or stenosis of left middle cerebral artery (principal); G81.91 Hemiplegia, unspecified affecting right dominant side; Z20.828 Contact with and (suspected) exposure to other viral communicable diseases; M10.061 Idiopathic gout, right knee; I10 Essential (primary) hypertension; E11.65 Type 2 diabetes mellitus with hyperglycemia; M06.9 Rheumatoid arthritis, unspecified; E78.5 Hyperlipidemia, unspecified; I67.9 Cerebrovascular disease, unspecified; E78.00 Pure hypercholesterolemia, unspecified; N40.0 Benign prostatic hyperplasia without lower urinary tract symptoms; J41.0 Simple chronic bronchitis; S80.212A Abrasion, left knee, initial encounter; S80.211A Abrasion, right knee, initial encounter; W19.XXXA Unspecified fall, initial encounter; I45.10 Unspecified right bundle-branch block; Z66 Do not resuscitate; Z79.84 Long term (current) use of oral hypoglycemic drugs; Z79.82 Long term (current) use of aspirin; Z79.899 Other long term (current) drug therapy; Z91.14 Patient's other noncompliance with medication regimen; Z87.891 Personal history of nicotine dependence; Z83.3 Family history of diabetes mellitus; Z82.49 Family history of ischemic heart disease and other diseases of the circulatory system
CPT/HCPCS: 36415; 70450; 70544; 70551; 71045; 80048; 80053; 80061; 82550; 82962; 83036; 84443; 84484; 85025; 85027; 85610; 87635; 93005; 93010; 99284; C9803; J1650; J1815; J3490; J7512